=== PATIENT | male | born 1980 | race Caucasian/White ===

== ENCOUNTER 2017-03-13 02:49 | Emergency (ER) | payer OTHER ==
[~2017-03-13] VITALS: Ht 182.9 cm; Wt 104.5 kg
[2017-03-13 03:00] VITALS: TEMP 97.7
[2017-03-13] MEDS ORDERED: CYMBALTA 60MG60 MG PO (03:05)
[2017-03-13] MEDS ORDERED: ZOLOFT 100MG100 MG PO (03:05)
[2017-03-13] MEDS ORDERED: MULTIPLE VITAMI1 CAP PO (03:06)
[2017-03-13] MEDS ORDERED: CELEBREX 1100 MG/CAP PO (03:06)
[2017-03-13] MEDS ORDERED: GLUCOSAMINE SU500 M2 PO (03:06)
[2017-03-13 03:59] LABS: BASO # 0.1 (0.0-0.2); BASO % 1.2 % (0.0-2.0); EOS # 0.3 (0.0-0.7); EOS % 3.7 % (0-4.0); HEMATOCRIT 43.3 % (42.0-52.0); HEMOGLOBIN 15.2 g/dl (13.5-18.0); LYMPH # 2.6 (1.2-3.4); LYMPH % 33.2 % (20.0-51.0); MEAN CELL VOLUME 86 fl (80.0-100.0); MEAN CORPUSCULAR HEMOGLOBIN 30 pg (27.0-31.0); MEAN CORPUSCULAR HGB CONC 35 g/dl (33.0-37.0); MEAN PLATELET VOLUME 9.9 fl (7.4-10.4); MONO # 0.7 (0.1-0.6); MONO % 9.6 % (1.7-9.3); PLATELET COUNT 266 K/mm3 (130-400); RED BLOOD COUNT 5.02 M/mm3 (4.20-5.60); REDCELL DISTRIBUTION WIDTH-CV 12.4 % (11.5-14.5); WHITE BLOOD COUNT 7.7 K/mm3 (4.8-10.8)
[2017-03-13 04:12] LABS: ADJUSTED CALCIUM 9.4 mg/dL (8.4-10.2); ALANINE AMINOTRANSFERASE 67 U/L (21-72); ALBUMIN 4.3 gm/dL (3.5-5.0); ALKALINE PHOSPHATASE 58 U/L (50-136); ANION GAP 11 mmol/L (7-16); BILIRUBIN,TOTAL 0.6 mg/dL (0.0-1.0); BLOOD UREA NITROGEN 21 mg/dL (9-20); CALCIUM 9.6 mg/dL (8.4-10.2); CARBON DIOXIDE 25 mmol/L (22-30); CHLORIDE 104 mmol/L (98-107); CREATININE, serum 0.98 mg/dL (0.66-1.25); GLUCOSE 89 mg/dL (74-106); LIPASE 157 U/L (23-300); SODIUM 140 mmol/L (137-145); TOTAL PROTEIN 6.9 gm/dL (6.4-8.2)
[2017-03-13 04:24] LABS: TROPONIN-I < 0.012 ng/mL (0.000-0.034)
[2017-03-13] MEDS ORDERED: NEXIUM 40MG40 MG PO (05:51)
[2017-03-13 06:21] VITALS: BP 117/69; PULSE 64
== END 2017-03-13 06:23 | disposition home or self-care (01) ==
LOC: COL.ER 02:49
PROVIDERS: Emergency Medicine
DX: R07.9 Chest pain, unspecified (principal)
CPT/HCPCS: J3360; J7030

== ENCOUNTER 2017-03-18 11:50 | Inpatient (IN) | payer OTHER ==
[~2017-03-18] VITALS: Ht 182.9 cm; Wt 108.1 kg
[2017-03-18] VITALS (585 sets, daily range): BP systolic 101–119; BP diastolic 60–76; PULSE 73–88; TEMP 96.8–97.2; O2SAT 95–100
[~2017-03-18 11:50] MED LIST: CELEBREX 1100 MG/CAP PO; CYMBALTA 60MG60 MG PO; GLUCOSAMINE SU500 M2 PO; MULTIPLE VITAMI1 CAP PO; NEXIUM 40MG40 MG PO; ZOLOFT 100MG100 MG PO
[2017-03-18] MEDS ORDERED: PRILOSEC10 MG PO (12:15)
[2017-03-19] VITALS (662 sets, daily range): BP systolic 94–104; BP diastolic 60–75; PULSE 70–86; TEMP 97–97.5; O2SAT 93–100
[2017-03-19 05:48] LABS: BASO # 0.1 (0.0-0.2); BASO % 0.6 % (0.0-2.0); EOS # 0.2 (0.0-0.7); EOS % 2.7 % (0-4.0); GRAN # 5.8 (1.4-6.5); GRAN % 67.9 % (42.2-75.2); HEMATOCRIT 44.3 % (42.0-52.0); LYMPH # 1.7 (1.2-3.4); LYMPH % 20.1 % (20.0-51.0); MEAN CELL VOLUME 89 fl (80.0-100.0); MEAN CORPUSCULAR HEMOGLOBIN 30 pg (27.0-31.0); MEAN CORPUSCULAR HGB CONC 34 g/dl (33.0-37.0); MEAN PLATELET VOLUME 10.1 fl (7.4-10.4); MONO # 0.7 (0.1-0.6); MONO % 8.5 % (1.7-9.3); PLATELET COUNT 228 K/mm3 (130-400); RED BLOOD COUNT 4.98 M/mm3 (4.20-5.60); REDCELL DISTRIBUTION WIDTH-CV 12.9 % (11.5-14.5); WHITE BLOOD COUNT 8.5 K/mm3 (4.8-10.8)
[2017-03-19 05:58] LABS: CALCIUM 9.1 mg/dL (8.4-10.2); CREATININE, serum 1.02 mg/dL (0.66-1.25); POTASSIUM 4.2 mmol/L (3.4-5.0)
== END 2017-03-19 17:38 | DRG 918 ==
LOC: ICU 11:50
PROVIDERS: Family Medicine
DX: T43.592A Poisoning by other antipsychotics and neuroleptics, intentional self-harm, initial encounter (principal); F33.2 Major depressive disorder, recurrent severe without psychotic features; M54.5 Low back pain; F43.10 Post-traumatic stress disorder, unspecified
CPT/HCPCS: 90791-AI; 99223-AI; 99239; J1650; J7030